=== PATIENT | female | born 2000 | race Caucasian/White ===

== ENCOUNTER → 2020-03-01 | Outpatient (CLI) | payer OTHER ==
--- NOTE | 2020-03-02 08:21 | Diagnostic Imaging Report ---
#[id number] - USBRECOMLT ULTRASOUND OF THE LEFT BREAST : 03/01/2020 No prior exams were available for comparison. Color flow and real-time ultrasound were performed on the left breast. No abnormalities were seen sonographically in the left axilla. There are no solid or cystic masses identified. IMPRESSION: BENIGN There is no sonographic evidence of malignancy. GIOVANNI REN M.D. ct/penrad:03/01/2020 15:09:13 Director Of Graduate Admissions: Lanny Mcnulty [facility], [facility] letter sent: Normal Exam Ultrasound BI-RADS: 2 Benign
== END ==
LOC: US 12:23
PROVIDERS: ATTEND Obstetrics & Gynecology
DX: N64.89 Other specified disorders of breast (principal)